=== PATIENT | male | born 1995 | race African-American/Black ===

== ENCOUNTER 2018-01-20 17:53 | Emergency (ER) | payer SELFPAY ==
[~2018-01-20] VITALS: Ht 182.9 cm; Wt 72.7 kg
[2018-01-20 17:56] VITALS: BP 108/58; TEMP 98.8
[2018-01-20] MEDS ORDERED: PROZAC 20MG20 MG PO (18:18)
[2018-01-20] MEDS ORDERED: ADDERALL10 MG PO (18:19)
[2018-01-20] MEDS ORDERED: ADVIL LIQUI-GE200 MG PO (18:19)
[2018-01-20] MEDS ORDERED: PREDNISONE10 MG PO (18:21)
[2018-01-20 18:53] VITALS: PULSE 91
== END 2018-01-20 18:54 | disposition home or self-care (01) ==
LOC: COL.ER 17:53
DX: B08.4 Enteroviral vesicular stomatitis with exanthem (principal); F17.210 Nicotine dependence, cigarettes, uncomplicated; Z79.52 Long term (current) use of systemic steroids

== ENCOUNTER → 2018-01-25 | Emergency (ER) | payer SELFPAY ==
[~2018-01-25] VITALS: Ht 177.8 cm; Wt 54.5 kg
[~2018-01-25] MED LIST: ADDERALL10 MG PO; ADVIL LIQUI-GE200 MG PO; PREDNISONE10 MG PO; PROZAC 20MG20 MG PO
[2018-01-25 13:57] LABS: HEMOGLOBIN 13.6 g/dl (13.5-18.0); MEAN CELL VOLUME 91 fl (80.0-100.0); MEAN CORPUSCULAR HEMOGLOBIN 31 pg (27.0-31.0); MEAN CORPUSCULAR HGB CONC 34 g/dl (33.0-37.0); RED BLOOD COUNT 4.38 M/mm3 (4.20-5.60); REDCELL DISTRIBUTION WIDTH-CV 15.4 % (11.5-14.5)
[2018-01-25 14:02] LABS: INR 1.7 (0.8-3.0); PROTHROMBIN TIME 20.3 SECONDS (9.7-12.8)
[2018-01-25 14:04] LABS: PARTIAL THROMBOPLASTIN TIME 27.2 SECONDS (26.0-37.0)
[2018-01-25 14:05] LABS: COLLECTION METHOD CATHETER
[2018-01-25 14:07] LABS: PLATELET COUNT 22 K/mm3 (130-400)
[2018-01-25 14:13] LABS: BAND 30 % (0-10); LYMPHOCYTE 14 % (20.0-51.0); METAMYELOCYTE 1 % (0-0); NEUTROPHILS 52 % (42.0-75.2); PLATELET ESTIMATE DECREASED (NORMAL)
[2018-01-25 14:14] LABS: BURR CELLS 1+
[2018-01-25 14:18] LABS: MUCOUS Present /lpf; PH 5 (5-8); SQUAMOUS EPITHELIAL None Seen /hpf; URINE APPEARANCE Turbid; URINE BACTERIA Rare /hpf; URINE BILIRUBIN Positive (NEGATIVE); URINE BLOOD 3+ (NEGATIVE); URINE COLOR Amber; URINE GLUCOSE Negative (NEGATIVE); URINE KETONE Negative (NEGATIVE); URINE LEUKOCYTE ESTERASE 2+ (NEGATIVE); URINE NITRATE Negative (NEGATIVE); URINE PROTEIN(semi-quant) 2+ (NEGATIVE); URINE RBC >50 /hpf; URINE UROBILINOGEN >=4.0 mg/dL (NEGATIVE)
[2018-01-25 14:24] LABS: TRICYCLIC ANTIDEPRESS URINE NEGATIVE
[2018-01-25 14:50] LABS: ALBUMIN 2.2 gm/dL (3.5-5.0); BILIRUBIN,TOTAL 3.6 mg/dL (0.0-1.0); CALCIUM 7.4 mg/dL (8.4-10.2); POTASSIUM 4.2 mmol/L (3.4-5.0); PROLACTIN 16.6 ng/mL (3.7-17.9); TOTAL PROTEIN 5.6 gm/dL (6.4-8.2)
[2018-01-25 14:52] LABS: TROPONIN-I 2.33 ng/mL (0.000-0.034)
[2018-01-25 15:24] LABS: CREATININE, serum 5.51 mg/dL (0.66-1.25)
[2018-01-25 15:43] VITALS: BP 94/51; PULSE 136; TEMP 96.8
[2018-01-25 17:57] LABS: ARTERIAL BLD GAS O2 SATURATION 99.1 % (92-100); ARTERIAL BLOOD GAS BASE EXCESS -12.7 (-2-2); ARTERIAL BLOOD GAS HCO3 13.1 meq/L (22-26); ARTERIAL BLOOD GAS PCO2 30.4 mmHg (35-45); ARTERIAL BLOOD GAS pH 7.25 (7.35-7.45)
[2018-01-25 18:00] LABS: ARTERIAL BLOOD GAS PO2 356.8 mmHg (80-100)
== END ==
LOC: COL.ER 13:25
PROVIDERS: Emergency Medicine
DX: A41.9 Sepsis, unspecified organism (principal); R65.21 Severe sepsis with septic shock; J96.90 Respiratory failure, unspecified, unspecified whether with hypoxia or hypercapnia; I62.9 Nontraumatic intracranial hemorrhage, unspecified; R79.89 Other specified abnormal findings of blood chemistry; R40.20 Unspecified coma
CPT/HCPCS: C1751; C1894; J0330; J0696; J1953; J2250; J3370; J7030; J7050; J7060